=== PATIENT | female | born 1960 | race Two or more races ===

== ENCOUNTER 2017-08-22 16:01 | Emergency (ER) | payer MEDICARE, MEDICAID ==
[~2017-08-22] VITALS: Ht 147.3 cm; Wt 128.0 kg
[2017-08-22] MEDS ORDERED: CEPHALEXIN 500MG CAPSULE PO ONE (18:15)
[2017-08-22 18:35] LABS: CHLORIDE 102 mEq/L (98-107)
[2017-08-22 18:36] LABS: BETA HYDROXYBUTYRATE 0.1 mMol/L (0.0-0.3)
[2017-08-22 18:57] VITALS: BP 154/77
[2017-08-22 19:01] LABS: BASOPHILS % 0.5 % (0.0-2.0); EOSINOPHILS % 1.4 % (0.0-5.0); HEMATOCRIT. 37.1 % (36.0-48.0); HEMOGLOBIN. 11.9 g/dL (12.0-16.0); LYMPHOCYTES % 29.7 % (20.0-50.0); MEAN CORPUSCULAR HEMOGLOBIN 26.3 pg (28.0-32.0); MEAN CORPUSCULAR VOLUME 82.3 fL (81.0-99.0); MEAN PLATELET VOLUME 7.2 fl (7.4-10.4); MONOCYTES % 6.4 % (2.0-8.0); PLATELET 341 x1000/uL (130-400); RED CELL DISTRIBUTION WIDTH 16.1 % (11.6-14.6)
[2017-08-22 19:21] LABS: CLARITY URINE CLOUDY (CLEAR); COLOR URINE YELLOW (YELLOW); KETONES URINE NEGATIVE (NEGATIVE); LEUKOCYTE ESTERASE URINE 2+ (NEGATIVE); NITRITE URINE NEGATIVE (NEGATIVE); OCCULT BLOOD URINE NEGATIVE (NEGATIVE); PROTEIN URINE NEGATIVE (NEGATIVE); SPECIFIC GRAVITY URINE 1.018 (1.005-1.030); UROBILINOGEN URINE 0.2 E.U./dL (0.2-1.0)
== END 2017-08-22 20:30 | disposition home or self-care (01) ==
LOC: ER 16:01
DX: S30.811A Abrasion of abdominal wall, initial encounter (principal); N39.0 Urinary tract infection, site not specified; E11.9 Type 2 diabetes mellitus without complications; Z98.890 Other specified postprocedural states; X58.XXXA Exposure to other specified factors, initial encounter; Y93.89 Activity, other specified; Y92.89 Other specified places as the place of occurrence of the external cause; Y99.8 Other external cause status
CPT/HCPCS: 36415; 80048; 81003; 82010; 82962; 85025; 87086; 99284

== ENCOUNTER → 2024-07-08 | Day surgery (SDC) | payer MEDICARE, MEDICAID ==
[~2024-07-08] VITALS: Ht 144.8 cm; Wt 113.0 kg
[~2024-07-08] MED LIST: ACETAMINOPHEN 1000MG/100ML 100 ML IV ONE; ALBU18HF2 IH; ATOR-2 PO; BUPIVACAINE HCL/PF 0.5% (5MG/ML) 10ML ONE; BUSP5TAB3 PO; DEXAMETHASONE 4MG/ML 1ML VIAL ONE; DICL100G58 TP; DOCU-422 PO; DULA1.5P SQ; FENTANYL CITRATE/PF 50MCG/ML 2ML VIAL IV PRN; FENTANYL CITRATE/PF 50MCG/ML 2ML VIAL ONE; GABA800T97 PO; LIDOCAINE HCL 1% 10 MG/ML 10ML VIAL ONE; LIDOCAINE HCL 1% 20ML VIAL ONE; MECL-299 PO; OMEP20CA14 PO; ONDANSETRON HCL 4MG/2ML INJ ONE; POLYMYXIN B SULFATE 500000 UNITS/VIAL ONE; PROPOFOL 200MG/20ML VIAL IV ONE; ROCURONIUM BROMIDE 10MG/ML VIAL 5ML IV ONE; SKIN ADHESIVE 0.7 GM EA TOP ONE; SODIUM CHLORIDE 0.9% 1,000 ML IV SCH; SUGAMMADEX SODIUM 200MG/2ML VIAL IV ONE
[2024-07-08] MEDS: HYDROMORPHONE HCL/PF 1MG/ML INJ IV PRN (10:20)
[2024-07-08] MEDS: ONDANSETRON HCL 4MG/2ML INJ IV PRN (10:21)
[2024-07-08] MEDS: KETOROLAC 30MG/ML VIAL IV NR (11:53)
[2024-07-08 13:27] VITALS: BP 119/60; PULSE 82; RESP 18
[2024-07-08] MEDS: HYDROCODONE/ACETAMINOPHEN 5/325MG TABLET PO PRN (13:27)
== END | disposition home or self-care (01) ==
LOC: OR 05:26
PROVIDERS: ATTEND Specialist
DX: K80.10 Calculus of gallbladder with chronic cholecystitis without obstruction (principal); E11.9 Type 2 diabetes mellitus without complications; E66.01 Morbid (severe) obesity due to excess calories; J45.909 Unspecified asthma, uncomplicated; M17.0 Bilateral primary osteoarthritis of knee; Z79.899 Other long term (current) drug therapy; Z88.5 Allergy status to narcotic agent; Z98.890 Other specified postprocedural states; Z68.43 Body mass index [BMI] 50.0-59.9, adult
CPT/HCPCS: 47562; 82962; 88304; J1885; J3010; J0131; J3490 ×4; J1100; J2003; J2405; J2704; J1171; A4663; J7120